=== PATIENT | female | born 2000 | race Caucasian/White ===

== ENCOUNTER 2022-10-22 16:03 | Emergency (ER) | payer BC, OTHER, SELFPAY ==
[2022-10-22 16:28] VITALS: BP 98/65; PULSE 68; RESP 20; TEMP 36.3; O2SAT 100; BMI 21.3
[2022-10-22 17:42] LABS: Bacteria Urine Few (2-10); Culture Indicated Urine Specimen Cultured; Mucus Urine 2+ (Negative); RBC Urine 0-1/HPF (0-5/HPF); Squamous Epithelial Cell Urine 1-5 /HPF (0-5/HPF); Transitional Epi Cells Urine 1-5/HPF (0-5/HPF); WBC Urine 5-10/HPF (0-5/HPF)
[2022-10-22 18:03] LABS: Other Crystals Urine 1+ Amorphous
--- NOTE | 2022-10-22 18:10 | DI.US.S_ITS ---
PROCEDURE: US OB <= 14 WEEKS FETUS INDICATIONS: unknown dates with vag bleeding TECHNIQUE: Real-time scanning was performed of the fetus and maternal pelvic organs, with image documentation. Endovaginal scanning was also performed to better visualize the fetus and maternal ovaries. COMPARISON: None. FINDINGS: No gestational sac is identified. IMPRESSION: No gestational sac is identified. If test is positive, cannot exclude ectopic . Dictated by: John Oliver M.D. on 10/22/2022 at 18:15 Approved by: John Oliver M.D. on 10/22/2022 at 18:16
[2022-10-22 18:48] LABS: Add Manual Diff / Slide Review NO; Basophils Absolute Auto 0 /uL (0-100); Basophils Percent Auto 0.5 % (0-2); Eosinophils Absolute Auto 0 /uL (0-450); Eosinophils Percent Auto 0.3 % (2-4); Hematocrit 42.1 % (36-46); Hemoglobin 14.5 g/dL (12.0-16.0); Lymphocytes Absolute Auto 1800 /uL (1100-4500); Lymphocytes Percent Auto 23.4 % (25-40); Mean Corpuscular HGB Conc 34.5 % (30-36); Mean Corpuscular Hemoglobin 30.2 PG (26-34); Mean Corpuscular Volume 87.5 fL (80-100); Monocytes Absolute Auto 400 /uL (0-900); Monocytes Percent Auto 4.8 % (3-14); Neutrophils Absolute Auto 5500 /uL (1500-7000); Platelet Count 304 X10^3/uL (150-400); Red Blood Cell Count 4.81 X10^6/uL (4.0-5.2); Red Cell Distribution Width 13.1 % (11.6-14.8); White Blood Cell Count 7.7 X10^3/uL (4.5-11.0)
[2022-10-22 19:03] LABS: BUN Creatinine Ratio 19.1 (6-22); Blood Urea Nitrogen 13 mg/dL (7-17); Calcium 9.2 mg/dL (8.4-10.2); Carbon Dioxide 28 mmol/L (22-32); Chloride 102 mmol/L (98-107); Estimated Glomerular Filt Rate > 60 mL/min (>60); Glucose 90 mg/dL (70-100); HEMOLYSIS 17 (0-50); Potassium 4.2 mmol/L (3.4-5.1); Sodium 137 mmol/L (137-145)
[2022-10-22 19:20] LABS: HCG Quantitative /Beta subunit 714 mIU/mL
--- NOTE | 2022-10-22 19:41 | ED.GENADULT ---
HPI - General Adult General Chief complaint: Vaginal Bleeding Stated complaint: preg and bleed, cramp, started on Fri Time Seen by Provider: 10/22/22 19:26 Source: patient Mode of arrival: Ambulatory Limitations: no limitations History of Present Illness HPI narrative: Patient is a 22-year-old female. here for evaluation of a positive home test and also bleeding and cramping. She does not have a primary doctor. Does not have a OB provider. This is her 1st . She is here because she started to have cramping and bleeding 2 days ago. She states that it is more than irregular menstrual cycle. She denies any fevers. No vomiting. No urinary symptoms. Related Data Allergies Allergy/AdvReac Type Severity Reaction Status Date / Time No Known Drug Allergies Allergy Verified 10/22/22 16:40 Review of Systems Constitutional Constitutional: Reports system reviewed and no additional complaints, except as documented Gastrointestinal Gastrointestinal: Reports system reviewed and no additional complaints, except as documented Genitourinary Genitourinary: Reports system reviewed and no additional complaints, except as documented Patient History tobacco type: vaping alcohol intake frequency: 0-2 drinks per day Substance Use Type: marijuana Exam Initial Vital Signs Initial Vital Signs: Vital Signs Temperature 97.4 F L 10/22/22 16:28 Pulse Rate 68 10/22/22 16:28 Respiratory Rate 20 10/22/22 16:28 Blood Pressure 98/65 10/22/22 16:28 Pulse Oximetry 100 10/22/22 16:28 Oxygen Delivery Method Room Air 10/22/22 16:28 HENMT Head: normal to inspection and normocephalic Resp Effort & Inspection: normal respiratory effort Cardio Rate: regular rate GI Inspection: normal to inspection Neuro General: patient alert, patient awake, patient oriented x3 and moves all extremities Extrem General: normal to inspection Course Orders Ordered: ED Orders 10/22/22 17:06 Urine Culture Stat Urine Microscopic Stat 10/22/22 18:10 US OB <= 14 weeks fetus Stat 10/22/22 18:38 ABO RH Type Stat Basic Metabolic Panel Stat Complete Blood Count AUTO DIFF Stat HCG Quantitative /Beta subunit Stat Vital Signs Vital signs: Vital Signs - 8 hr 10/22/22 19:46 Pulse Rate 67 Blood Pressure 104/60 Pulse Oximetry 99 Oxygen Delivery Method Room Air Medical Decision Making Lab Data Lab results reviewed: Yes I reviewed the patient's lab results. 10/22/22 18:38 10/22/22 18:38 Labs: Lab Results 10/22/22 10/22/22 10/22/22 Range/Units 17:06 18:38 18:38 WBC 7.7 (4.5-11.0) X10^3/uL RBC 4.81 (4.0-5.2) X10^6/uL Hgb 14.5 (12.0-16.0) g/dL Hct 42.1 (36-46) % MCV 87.5 (80-100) fL MCH 30.2 (26-34) PG MCHC 34.5 (30-36) % RDW 13.1 (11.6-14.8) % Plt Count 304 (150-400) X10^3/uL Neut % (Auto) 71.0 (50-75) % Lymph % (Auto) 23.4 L (25-40) % [place] % (Auto) 4.8 (3-14) % Eos % (Auto) 0.3 L (2-4) % Baso % (Auto) 0.5 (0-2) % Neut # (Auto) 5500 (6002-8390) /uL Lymph # (Auto) 1800 (1725-6982) /uL [place] # (Auto) 400 (0-900) /uL Eos # (Auto) 0 (0-450) /uL Baso # (Auto) 0 (0-100) /uL Sodium 137 (137-145) mmol/L Potassium 4.2 (3.4-5.1) mmol/L Chloride 102 (98-107) mmol/L Carbon Dioxide 28 (22-32) mmol/L BUN 13 (7-17) mg/dL Creatinine 0.68 (0.52-1.04) mg/dL Estimated GFR > 60 (>60) mL/min BUN/Creatinine Ratio 19.1 (6-22) Glucose 90 (70-100) mg/dL Calcium 9.2 (8.4-10.2) mg/dL HCG, Quant 714 mIU/mL Urine RBC 0-1/hpf (0-5/HPF) Urine WBC 5-10/hpf H (0-5/HPF) Ur Squamous Epith Cells 1-5 /hpf (0-5/HPF) Ur Transition Epith Cell 1-5/hpf (0-5/HPF) Other Crystals 1+ amorphous Urine Bacteria Few (2-10) H (None) Urine Mucus 2+ H (Negative) Ur Culture Indicated? Specimen cultured Blood Type 10/22/22 Range/Units 18:38 WBC (4.5-11.0) X10^3/uL RBC (4.0-5.2) X10^6/uL Hgb (12.0-16.0) g/dL Hct (36-46) % MCV (80-100) fL MCH (26-34) PG MCHC (30-36) % RDW (11.6-14.8) % Plt Count (150-400) X10^3/uL Neut % (Auto) (50-75) % Lymph % (Auto) (25-40) % [place] % (Auto) (3-14) % Eos % (Auto) (2-4) % Baso % (Auto) (0-2) % Neut # (Auto) (9239-7358) /uL Lymph # (Auto) (6459-4282) /uL [place] # (Auto) (0-900) /uL Eos # (Auto) (0-450) /uL Baso # (Auto) (0-100) /uL Sodium (137-145) mmol/L Potassium (3.4-5.1) mmol/L Chloride (98-107) mmol/L Carbon Dioxide (22-32) mmol/L BUN (7-17) mg/dL Creatinine (0.52-1.04) mg/dL Estimated GFR (>60) mL/min BUN/Creatinine Ratio (6-22) Glucose (70-100) mg/dL Calcium (8.4-10.2) mg/dL HCG, Quant mIU/mL Urine RBC (0-5/HPF) Urine WBC (0-5/HPF) Ur Squamous Epith Cells (0-5/HPF) Ur Transition Epith Cell (0-5/HPF) Other Crystals Urine Bacteria (None) Urine Mucus (Negative) Ur Culture Indicated? Blood Type A Positive Point of Care Testing Test Results Positive Urine Dip Bedside Urine Glucose Negative Bedside Urine Bilirubin - Negative Bedside Urine Ketone - Negative Urine Specific [place] 1.020 Bedside Urine Occult Blood +++ Bedside Urine pH 6.5 Bedside Urine Protein - Negative Bedside Urine Urobilinogen +/- 1mg Bedside Urine Nitrite - Negative Bedside Urine Leukocytes - Negative Esterase Point of care testing: Point of Care Testing Test Results Positive Urine Dip Bedside Urine Glucose Negative Bedside Urine Bilirubin - Negative Bedside Urine Ketone - Negative Urine Specific [place] 1.020 Bedside Urine Occult Blood +++ Bedside Urine pH 6.5 Bedside Urine Protein - Negative Bedside Urine Urobilinogen +/- 1mg Bedside Urine Nitrite - Negative Bedside Urine Leukocytes - Negative Esterase Imaging Data US - OB: Radiologist's Impression: PROCEDURE:? US OB <= 14 WEEKS FETUS ? INDICATIONS:? unknown dates with vag bleeding ? TECHNIQUE:? Real-time scanning was performed of the fetus and maternal pelvic organs, with image documentation.? Endovaginal scanning was also performed to better visualize the fetus and maternal ovaries.? ? COMPARISON:? None. ? FINDINGS:? No gestational sac is identified. ? IMPRESSION:? No gestational sac is identified.? If test is positive, cannot exclude ectopic . MDM Narrative Medical decision making narrative: Patient is Rh positive. Does have a positive urine test however quantitative is well below the level where we would expect to see an IUP. The ultrasound shows no signs of ectopic but also does not show any IUP. Had a long discussion with the patient regarding this. We discussed that potentially this is a miscarriage and her quantitative level could be going down or potentially she is so early on in the that her quantitative level could be increasing and we just do not see anything on the ultrasound because of its current level. We discussed the importance of a repeat lab draw in 48 hours. She does not have a primary doctor nor in primary OB doctor for this. Informed her that she could either go to the walk-in clinic to have this drawn that she most likely will not need a repeat ultrasound or she could come back to the emergency department. She was given strict return precautions. We did discuss that I could not completely rule out that this was an ectopic given her hormone level today. She expressed understanding of this. She expressed understanding of the return precautions. Discharge Plan Departure Patient Disposition: Home Clinical Impression: Threatened Instructions: DI for Vaginal Bleeding During Activity Restrictions/Additional Instructions: It is important that you have a follow-up on Sunday to have a repeat hCG quantitative level drawn. You can try the walk-in clinic for this or you can return to the emergency department. Until then I would not be surprised if you continue to have some continued bleeding however if you start to have fevers, worsening pain or bleeding more than multiple pads an hour for multiple hours in a row you need to return to the emergency department. Stand Alone Forms: Patient Portal/API
[2022-10-22 19:46] VITALS: BP 104/60; PULSE 67; O2SAT 99
== END 2022-10-22 19:54 | disposition home or self-care (01) ==
PROVIDERS: Emergency Medicine; Emergency Provider Emergency Medicine
DX: O20.0 Threatened abortion (principal)
CPT/HCPCS: 36415; 76801; 76830; 80048; 81003; 81015; 81025; 84702; 85025; 86900; 86901; 87086; 99282; 99284

== ENCOUNTER 2023-02-21 17:08 | Emergency (ER) | payer BC, OTHER, SELFPAY ==
[2023-02-21 17:23] VITALS: BP 120/62; PULSE 83; RESP 16; TEMP 36.8; O2SAT 100; BMI 18.1
--- NOTE | 2023-02-21 18:05 | DI.CT.S_ITS ---
PROCEDURE: CT ABDOMEN PELVIS W CON INDICATIONS: ab pain TECHNIQUE: After the administration of intravenous contrast, axial sections acquired from the lung bases to the pubic symphysis. Coronal and sagittal reformats were performed. For radiation dose reduction, the following was used: automated exposure control, adjustment of mA and/or kV according to patient size. COMPARISON: None. FINDINGS: Image quality: Good Lower chest: Unremarkable Solid organs: The the liver appears unremarkable. Gallbladder is unremarkable. There may be some sludge. No pathologic dilation of the biliary tree or pancreatic duct. No splenomegaly. No adrenal nodules. No hydronephrosis. Vessels and lymph nodes: Main portal vein appears patent. No abdominal aortic aneurysm. No pathologic lymph nodes by size criteria. Bowel and peritoneum: No evidence of small bowel obstruction. No abscess or pathologic ascites. Appendix is normal. Body wall: Unremarkable Pelvis: Reproductive organs are not well evaluated on CT. Suspected left ovarian dominant follicle. Overall appearance is physiologic for age. Bladder is under distended. Small amount of pelvic free fluid may be physiologic. Bones: No acute or suspicious osseous finding. High IMPRESSION: No acute abdominal pelvic pathology. Clinical followup is recommended. If there is new or worsening clinical concern, reimaging could be obtained. Consider ultrasound to further evaluate the reproductive organs if necessary. Dictated by: Cruz Marin M.D. on 02/21/2023 at 19:09 Approved by: Cruz Marin M.D. on 02/21/2023 at 19:15
[2023-02-21] MEDS: ONDANSETRON 4 MG/2 ML INJ IV (18:48)
--- NOTE | 2023-02-21 18:53 | ED.ABDPAIN ---
HPI - Abdominal Pain General Chief Complaint: Abdominal Pain Stated Complaint: Abd pain, back pain, d/n, losing weight Time Seen by Provider: 02/21/23 18:05 Source: patient Mode of arrival: Ambulatory History of Present Illness HPI narrative: Patient is a 22-year-old female who presents today with ongoing chronic abdominal pain. She reports weight loss of lb over the last few months and 100 lb over last 2 years. She has some night sweats sometimes. She has increasing abdominal pain and back pain radiating up into her head. She says that today the pain got to be so bad it was unbearable. She occasionally takes ibuprofen it does not really help. She reports early satiety. No nausea or vomiting. Her bowel movements have been quite loose and liquidy. Not really formed stools. He is never really been seen or evaluated for this. Related Data Previous Rx's Medication Instructions Recorded omeprazole 20 mg capsule,delayed 20 mg PO DAILY #30 caps 02/21/23 release Allergies Allergy/AdvReac Type Severity Reaction Status Date / Time No Known Drug Allergies Allergy Verified 10/22/22 16:40 Review of Systems Review of Systems ROS Unobtainable: All systems reviewed & are unremarkable except as noted in HPI and below Patient History Social History Smoking Status: Current every day smoker Smoking Status: Current every day smoker tobacco type: vaping alcohol intake frequency: 0-2 drinks per day Substance Use Type: does not use Exam Initial Vital Signs Initial Vital Signs: Vital Signs Temperature 98.2 F 02/21/23 17:23 Pulse Rate 83 02/21/23 17:23 Respiratory Rate 16 02/21/23 17:23 Blood Pressure 120/62 02/21/23 17:23 Pulse Oximetry 100 02/21/23 17:23 Oxygen Delivery Method Room Air 02/21/23 17:23 GENERAL: Thin tearful 22-year-old female HEENT: Head atraumatic,EOMI, pupils reactive, face symmetric, moist mucous membranes CARDIOVASCULAR: Regular rate and rhythm without murmurs, rubs or gallops. RESPIRATORY: Breath sounds equal bilaterally, no wheezes rales or rhonchi. ABDOMEN: Soft, mild diffuse tenderness no distention. Normoactive bowel sounds all 4 quadrants. No guarding or rebound. EXTREMITIES: Normal range of motion, no clubbing or edema. Neurovascularly intact NEUROLOGICAL: Alert and oriented x4. SKIN: Warm, dry, no laceration, no petechiae, no rashes or lesions. Course Orders Ordered: Discontinued Medications Sodium Chloride (Normal Saline 0.9%) 1,000 mls @ 1,000 mls/hr IV BOLUS ONE Stop: 02/21/23 20:43 Last Infusion: 02/21/23 20:49 Dose: 0 mls/hr Documented By: Admin: 02/21/23 19:45 Dose: 1,000 mls/hr Documented By: SPF Ketorolac Tromethamine (Ketorolac 30 Mg/Ml Vial) 15 mg IV NOW ONE Stop: 02/21/23 19:25 Last Admin: 02/21/23 19:36 Dose: 15 mg Documented By: SPF Ondansetron HCl (Ondansetron 4 Mg/2 Ml Inj) 4 mg IV NOW PRN PRN Reason: Nausea And Vomiting Last Admin: 02/21/23 18:48 Dose: 4 mg Documented By: ROBERT Pantoprazole Sodium (Pantoprazole 40 Mg Vial) 40 mg IV NOW ONE Stop: 02/21/23 19:25 Last Admin: 02/21/23 19:31 Dose: 40 mg Documented By: ROBERT Vital Signs Vital signs: Vital Signs - 8 hr 02/21/23 20:48 02/21/23 20:48 Pulse Rate 68 Blood Pressure 115/75 Pulse Oximetry 99 Oxygen Delivery Method Room Air MDM - Abdominal Pain Lab Data 02/21/23 18:25 02/21/23 18:25 Labs: Lab Results 02/21/23 02/21/23 02/21/23 Range/Units 17:51 18:25 18:25 WBC 9.5 (4.5-11.0) X10^3/uL RBC 4.70 (4.0-5.2) X10^6/uL Hgb 14.0 (12.0-16.0) g/dL Hct 40.5 (36-46) % MCV 86.2 (80-100) fL MCH 29.7 (26-34) PG MCHC 34.5 (30-36) % RDW 13.5 (11.6-14.8) % Plt Count 237 (150-400) X10^3/uL Neut % (Auto) 75.8 H (50-75) % Lymph % (Auto) 18.6 L (25-40) % [place] % (Auto) 5.1 (3-14) % Eos % (Auto) 0.1 L (2-4) % Baso % (Auto) 0.4 (0-2) % Neut # (Auto) 7200 H (4030-6662) /uL Lymph # (Auto) 1800 (3242-3800) /uL [place] # (Auto) 500 (0-900) /uL Eos # (Auto) 0 (0-450) /uL Baso # (Auto) 0 (0-100) /uL Sodium 137 (137-145) mmol/L Potassium 3.8 (3.4-5.1) mmol/L Chloride 103 (98-107) mmol/L Carbon Dioxide 24 (22-32) mmol/L BUN 15 (7-17) mg/dL Creatinine 0.71 (0.52-1.04) mg/dL Estimated GFR > 60 (>60) mL/min BUN/Creatinine Ratio 21.1 (6-22) Glucose 79 (70-100) mg/dL Calcium 9.8 (8.4-10.2) mg/dL Total Bilirubin 1.0 (0.2-1.3) mg/dL AST 33 (14-36) IU/L ALT 30 (<35) IU/L Alkaline Phosphatase 56 (38-126) U/L Total Protein 8.8 H (6.3-8.2) g/dL Albumin 5.1 H (3.5-5.0) g/dL Globulin 3.7 (1.7-4.1) g/dL Albumin/Globulin Ratio 1.4 (1.0-2.8) Lipase 39 (23-300) U/L TSH (0.47-4.68) uIU/mL Urine RBC None seen (0-5/HPF) Urine WBC 0-1/hpf (0-5/HPF) Ur Squamous Epith Cells None seen (0-5/HPF) Urine Bacteria None seen (None) Urine Mucus 1+ H (Negative) Ur Culture Indicated? Cult not indicated Ketones 0.75 H (<0.27) mmol/L 02/21/23 Range/Units 18:25 WBC (4.5-11.0) X10^3/uL RBC (4.0-5.2) X10^6/uL Hgb (12.0-16.0) g/dL Hct (36-46) % MCV (80-100) fL MCH (26-34) PG MCHC (30-36) % RDW (11.6-14.8) % Plt Count (150-400) X10^3/uL Neut % (Auto) (50-75) % Lymph % (Auto) (25-40) % [place] % (Auto) (3-14) % Eos % (Auto) (2-4) % Baso % (Auto) (0-2) % Neut # (Auto) (3220-8293) /uL Lymph # (Auto) (3319-8051) /uL [place] # (Auto) (0-900) /uL Eos # (Auto) (0-450) /uL Baso # (Auto) (0-100) /uL Sodium (137-145) mmol/L Potassium (3.4-5.1) mmol/L Chloride (98-107) mmol/L Carbon Dioxide (22-32) mmol/L BUN (7-17) mg/dL Creatinine (0.52-1.04) mg/dL Estimated GFR (>60) mL/min BUN/Creatinine Ratio (6-22) Glucose (70-100) mg/dL Calcium (8.4-10.2) mg/dL Total Bilirubin (0.2-1.3) mg/dL AST (14-36) IU/L ALT (<35) IU/L Alkaline Phosphatase (38-126) U/L Total Protein (6.3-8.2) g/dL Albumin (3.5-5.0) g/dL Globulin (1.7-4.1) g/dL Albumin/Globulin Ratio (1.0-2.8) Lipase (23-300) U/L TSH 1.21 (0.47-4.68) uIU/mL Urine RBC (0-5/HPF) Urine WBC (0-5/HPF) Ur Squamous Epith Cells (0-5/HPF) Urine Bacteria (None) Urine Mucus (Negative) Ur Culture Indicated? Ketones (<0.27) mmol/L Point of care testing: Point of Care Testing Test Results Negative Urine Dip Bedside Urine Glucose Negative Bedside Urine Bilirubin - Negative Bedside Urine Ketone ++ 40 Urine Specific [place] 1.030 Bedside Urine Occult Blood +/- Bedside Urine pH 6.0 Bedside Urine Protein + 30 Bedside Urine Urobilinogen - Negative Bedside Urine Nitrite - Negative Bedside Urine Leukocytes - Negative Esterase Imaging Data CT scan - abdomen/pelvis: Radiologist's Impression: PROCEDURE:? CT ABDOMEN PELVIS W CON ? INDICATIONS:? ab pain ? TECHNIQUE:? After the administration of intravenous contrast, axial sections acquired from the lung bases to the pubic symphysis.? Coronal and sagittal reformats were performed.? For radiation dose reduction, the following was used:? automated exposure control, adjustment of mA and/or kV according to patient size.? ? COMPARISON:? None. ? FINDINGS:? Image quality:? Good ? Lower chest:? Unremarkable ? Solid organs:? The the liver appears unremarkable.? Gallbladder is unremarkable.? There may be some sludge.? No pathologic dilation of the biliary tree or pancreatic duct.? No splenomegaly.? No adrenal nodules.? No hydronephrosis. ? Vessels and lymph nodes:? Main portal vein appears patent.? No abdominal aortic aneurysm. ?No pathologic lymph nodes by size criteria. ? Bowel and peritoneum:? No evidence of small bowel obstruction.? No abscess or pathologic ascites.? Appendix is normal. ? Body wall:? Unremarkable ? Pelvis:? Reproductive organs are not well evaluated on CT.? Suspected left ovarian dominant follicle.? Overall appearance is physiologic for age.? Bladder is under distended.? Small amount of pelvic free fluid may be physiologic. ? Bones:? No acute or suspicious osseous finding.? High ? ? IMPRESSION:? No acute abdominal pelvic pathology.? Clinical followup is recommended. If there is new or worsening clinical concern, reimaging could be obtained. Consider ultrasound to further evaluate the reproductive organs if necessary.? ? ? Dictated by: Cruz Marin M.D. on 02/21/2023 at 19:09 ? ? MDM Narrative Medical decision making narrative: Patient healthy 22-year-old female who has had ongoing abdominal pain and discomfort. She is had significant weight loss with early safety. Abdominal CT does not show any mass. Blood work is overall reassuring her thyroid is within normal limits. At this time no need for admission. Over do strongly encourage and recommend outpatient follow-up and further evaluation with GI. For now will start on omeprazole. Labs: No leukocytosis or anemia, no electrolyte abnormality no JEANMARIE, albumin 5.1 TSH 1.21 Discharge Plan Departure Patient Disposition: Home Clinical Impression: Chronic abdominal pain, Abnormal weight loss Instructions: DI for Abdominal Pain-Adult Activity Restrictions/Additional Instructions: *You have been diagnosed with abdominal pain *What to do: At this time recommend taking ulcer medication to see if it helps with your pain. I also recommend GI evaluation. CT scan blood work are reassuring no evidence of thyroid problems. *Continue to take medications as directed Omeprazole 20 mg twice a day for at least 14 days *Follow up with your primary care provider in 2-3 days or call [phone] *Return to ER if you should have increasing abdominal pain passing out or any new, worsening or concerning symptoms Prescriptions: New omeprazole 20 mg capsule,delayed release(DR/EC) 20 mg PO DAILY Qty: 30 0RF Stand Alone Forms: Patient Portal/API
[2023-02-21 18:55] LABS: HEMOLYSIS < 15 (0-50); Sodium 137 mmol/L (137-145)
[2023-02-21 18:56] LABS: Alanine Aminotransferase 30 IU/L (<35); Albumin 5.1 g/dL (3.5-5.0); Albumin Globulin Ratio 1.4 (1.0-2.8); Alkaline Phosphatase 56 U/L (38-126); Aspartate Aminotransferase 33 IU/L (14-36); BUN Creatinine Ratio 21.1 (6-22); Blood Urea Nitrogen 15 mg/dL (7-17); Calcium 9.8 mg/dL (8.4-10.2); Carbon Dioxide 24 mmol/L (22-32); Chloride 103 mmol/L (98-107); Estimated Glomerular Filt Rate > 60 mL/min (>60); Globulin 3.7 g/dL (1.7-4.1); Glucose 79 mg/dL (70-100); Lipase 39 U/L (23-300); Potassium 3.8 mmol/L (3.4-5.1); Total Protein 8.8 g/dL (6.3-8.2)
[2023-02-21 18:58] LABS: Ketones (Beta-Hydroxybutyrate) 0.75 mmol/L (<0.27)
[2023-02-21 19:03] LABS: Bacteria Urine None Seen; Culture Indicated Urine Cult Not Indicated; Mucus Urine 1+ (Negative); RBC Urine None Seen (0-5/HPF); Squamous Epithelial Cell Urine None Seen (0-5/HPF); WBC Urine 0-1/HPF (0-5/HPF)
[2023-02-21 19:09] LABS: Add Manual Diff / Slide Review NO; Basophils Absolute Auto 0 /uL (0-100); Basophils Percent Auto 0.4 % (0-2); Eosinophils Absolute Auto 0 /uL (0-450); Eosinophils Percent Auto 0.1 % (2-4); Hematocrit 40.5 % (36-46); Lymphocytes Absolute Auto 1800 /uL (1100-4500); Lymphocytes Percent Auto 18.6 % (25-40); Mean Corpuscular HGB Conc 34.5 % (30-36); Mean Corpuscular Hemoglobin 29.7 PG (26-34); Mean Corpuscular Volume 86.2 fL (80-100); Monocytes Absolute Auto 500 /uL (0-900); Monocytes Percent Auto 5.1 % (3-14); Neutrophils Absolute Auto 7200 /uL (1500-7000); Neutrophils Percent Auto 75.8 % (50-75); Platelet Count 237 X10^3/uL (150-400); Red Cell Distribution Width 13.5 % (11.6-14.8); White Blood Cell Count 9.5 X10^3/uL (4.5-11.0)
[2023-02-21] MEDS: PANTOPRAZOLE 40 MG VIAL IV (19:31)
[2023-02-21] MEDS: KETOROLAC 30 MG/ML VIAL 15 MG IV (19:36)
[2023-02-21] MEDS: SODIUM CHLORIDE 0.9% 1,000 ML 1000 ML IV (19:45)
[2023-02-21 20:08] LABS: Thyroid Stimulating Hormone 1.21 uIU/mL (0.47-4.68)
[2023-02-21 20:48] VITALS: BP 115/75; PULSE 68; O2SAT 99
== END 2023-02-21 20:54 | disposition home or self-care (01) ==
PROVIDERS: Emergency Medicine; Emergency Provider Emergency Medicine
DX: R10.9 Unspecified abdominal pain (principal); R63.4 Abnormal weight loss
CPT/HCPCS: 36415; 74177; 80053; 81003; 81015; 81025; 82009; 83690; 84443; 85025; 96361; 96374; 96375; 99284; C9113; J1885; J2405

== ENCOUNTER → 2023-05-25 12:54 | Outpatient (CLI) | payer OTHER, SELFPAY ==
[2023-05-25 13:50] LABS: Appearance Urine UA CLEAR; Bilirubin Urine UA NEGATIVE (NEGATIVE); Color Urine UA YELLOW; Glucose Urine UA NEGATIVE (Negative); Ketones Urine UA NEGATIVE (NEGATIVE); Leukocyte Esterase Urine UA NEGATIVE (NEGATIVE); Nitrite Urine UA NEGATIVE (Negative); Occult Blood Urine UA NEGATIVE (Negative); Protein Urine UA NEGATIVE (Negative); Specific Gravity Urine UA 1.025 (1.000-1.035); Urobilinogen Urine UA 0.2 E.U./dL (0.2)
[2023-05-25 13:54] LABS: pH Urine UA 5.5 (4.5-8.0)
[2023-05-25 14:03] LABS: Add Manual Diff / Slide Review NO; Basophils Absolute Auto 0 /uL (0-100); Basophils Percent Auto 0.3 % (0-2); Eosinophils Absolute Auto 0 /uL (0-450); Eosinophils Percent Auto 0.2 % (2-4); Hematocrit 39.6 % (36-46); Hemoglobin 13.8 g/dL (12.0-16.0); Lymphocytes Absolute Auto 1700 /uL (1100-4500); Lymphocytes Percent Auto 15.9 % (25-40); Mean Corpuscular HGB Conc 34.9 % (30-36); Mean Corpuscular Hemoglobin 30.5 PG (26-34); Mean Corpuscular Volume 87.5 fL (80-100); Monocytes Absolute Auto 600 /uL (0-900); Monocytes Percent Auto 5.3 % (3-14); Neutrophils Absolute Auto 8500 /uL (1500-7000); Neutrophils Percent Auto 78.3 % (50-75); Platelet Count 311 X10^3/uL (150-400); Red Blood Cell Count 4.52 X10^6/uL (4.0-5.2); Red Cell Distribution Width 12.8 % (11.6-14.8); White Blood Cell Count 10.9 X10^3/uL (4.5-11.0)
[2023-05-26 07:21] LABS: RPR Screen Non Reactive (Non Reactive)
[2023-05-26 08:37] LABS: Varicella IgG Antibody 251 index (Immune >165)
[2023-05-28 16:40] LABS: Hepatitis B Surface Antigen NEGATIVE s/c (NEGATIVE); Rubella Antibody IgG 8.8 IU/mL (>15)
[2023-05-28 16:59] LABS: HIV 1 & 2 Ab/Ag 4th Gen Combo NEGATIVE (NEGATIVE); Hep C Virus Ab w/Reflex Quant NEGATIVE s/c (NEGATIVE)
== END ==
PROVIDERS: Referring Provider Family Medicine; Visit Provider Family Medicine
DX: Z34.80 Encounter for supervision of other normal pregnancy, unspecified trimester (principal)
CPT/HCPCS: 36415; 80055; 81003; 86787; 86803; 86850; 86900; 86901; 87086; 87389

== ENCOUNTER → 2023-07-27 10:50 | Outpatient (CLI) | payer OTHER, SELFPAY ==
[2023-07-31 21:07] LABS: AFP, Serum 24.8 ng/mL (.); Calc Gestational Age EDD (.); Inhibin A, Dimeric 108.23 pg/mL (.); Inhibin A, MoM 0.78 (.); Maternal Ethnicity Caucasian (.); Maternal Weight 173 lbs (.); Number of Fetuses No (.); OSBR Risk 1 IN 10000 (.); Results Report (.); Test Results *Screen Negative* (.); hCG, MoM 0.49 (.); hCG, Serum 14591 mIU/mL (.)
== END ==
PROVIDERS: PCP Family Medicine; Referring Provider Family Medicine; Visit Provider Family Medicine
DX: Z34.80 Encounter for supervision of other normal pregnancy, unspecified trimester (principal)
CPT/HCPCS: 36415; 82105; 82677; 84702; 86336

== ENCOUNTER → 2023-08-17 14:02 | Outpatient (CLI) | payer OTHER, SELFPAY ==
--- NOTE | 2023-08-17 14:03 | DI.US.S_ITS ---
PROCEDURE: US OB <= 14 WEEKS FETUS INDICATIONS: ANATOMY OUTSIDE/PRIOR DATING DATA: Last menstrual period (LMP): 03/22/2023. LMP-based estimated date of delivery (MISTY): 12/28/2023. First dating scan (date and location): 05/25/2023 Estimated date of delivery (MISTY) from first dating scan: 01/02/2024. The calculations are made using the ultrasound MISTY of 01/02/2024. TECHNIQUE: Real-time scanning was performed of the fetus, with image documentation and biometric measurements. Endovaginal scanning: Performed COMPARISON: [facility], OB <= 14 WEEKS FETUS, 10/22/2022, 18:47. FINDINGS: General: A single living intrauterine gestation is present. Presentation: Breech. Placenta: Placental position is fundal , without previa. Amniotic fluid index: 12.0 cm, normal range is 5-24 cm. Single deepest pocket: 3.7 cm. heart rate: 149 beats per minute. Maternal cervical canal: 4.6 cm long. Normal lower limit is 2.5 cm. There is fluid in the endocervical canal, but no funneling. biometrics: Biparietal diameter: 4.8 cm, 20 weeks 3 days Head circumference: 18.2 cm, 20 weeks 3 days Abdominal circumference: 15.7 cm, 20 weeks 3 days Femur length: 3.4 cm, 20 weeks 4 days Clinically estimated gestational age: 20 weeks 2 days Composite gestational age from present scan: 20 weeks 4 days Estimated weight and percentile: 371 g, 69th percentile Anatomic survey: Neuro: Ventricles are non-dilated at less than 10 mm. Cisterna magna is normal at 3-11 mm. Cerebellum is normal in size and morphology. Nuchal skin fold: Normal at less than 6 mm between 14-21 weeks gestational age. Face: Nose and lips, facial profile are normal. Spine: No evidence for spina bifida. Heart: 4-chambered heart is present, with normal ventricular outflow tracts. Diaphragm: Diaphragm is intact. Stomach: Left-sided stomach is present. Kidneys: No hydronephrosis. Normal is less than 5 mm in 2nd trimester, less than 7 mm in 3rd trimester. Cord: 3-vessel cord has orthotopic insertion. Bladder: Normal in size. Extremities: All 4 extremities identified. IMPRESSION: 1. Living 2nd trimester intrauterine with no sonographic evidence of complications. Current ultrasound age corresponds to clinical age. 2. Normal 2nd trimester anatomy study. We strive to produce accurate, complete, and clear reports of imaging services. To assist us in improving patient care, this report was composed using standard report templates and voice recognition software. Therefore, it may contain abnormal punctuation, insertions and/or omissions. Occasional wrong-word or sound-alike substitutions may occur. Though we review the report and make efforts to correct it, we do recommend that the report be read carefully in proper context to recognize any text inaccuracies. Measurement variability for biometric dating: +/- 7 days from 14 weeks to 15 weeks 6 days gestation, +/- 10 days from 16 weeks to 21 weeks 6 days gestation, +/- 2 weeks from 22 weeks to 27 weeks 6 days gestation, +/- 3 weeks for 28 weeks gestation or later. weight reference: 4500 g or EFW >90/95% is considered macrosomia or large for gestational age. EFW <10% is small for gestational age. EFW 5% or less is considered intra-uterine growth restriction. Dictated by: Ra Person M.D. on 08/17/2023 at 18:49 Approved by: Ra Person M.D. on 08/17/2023 at 18:59
== END ==
LOC: US 14:02
PROVIDERS: PCP Family Medicine; Referring Provider Family Medicine; Visit Provider Family Medicine
DX: Z34.82 Encounter for supervision of other normal pregnancy, second trimester (principal); Z3A.20 20 weeks gestation of pregnancy
CPT/HCPCS: 76801

== ENCOUNTER → 2023-10-06 09:00 | Outpatient (CLI) | payer OTHER, SELFPAY ==
[2023-10-06 10:59] LABS: Add Manual Diff / Slide Review NO; Basophils Absolute Auto 0 /uL (0-100); Basophils Percent Auto 0.2 % (0-2); Eosinophils Absolute Auto 0 /uL (0-450); Eosinophils Percent Auto 0.4 % (2-4); Hematocrit 30.2 % (36-46); Hemoglobin 10.6 g/dL (12.0-16.0); Lymphocytes Absolute Auto 1100 /uL (1100-4500); Lymphocytes Percent Auto 15.8 % (25-40); Mean Corpuscular HGB Conc 35.1 % (30-36); Mean Corpuscular Hemoglobin 29.5 PG (26-34); Mean Corpuscular Volume 84.2 fL (80-100); Monocytes Absolute Auto 400 /uL (0-900); Monocytes Percent Auto 5.8 % (3-14); Neutrophils Absolute Auto 5600 /uL (1500-7000); Neutrophils Percent Auto 77.8 % (50-75); Platelet Count 245 X10^3/uL (150-400); Red Blood Cell Count 3.58 X10^6/uL (4.0-5.2); Red Cell Distribution Width 12.7 % (11.6-14.8); White Blood Cell Count 7.2 X10^3/uL (4.5-11.0)
[2023-10-06 11:40] LABS: GTT (PREG) 1 Hour PP 50gm Dose 106 mg/dL (76-139)
== END ==
LOC: LAB 09:01
PROVIDERS: PCP Family Medicine; Referring Provider Family Medicine; Visit Provider Family Medicine
DX: Z34.80 Encounter for supervision of other normal pregnancy, unspecified trimester (principal)
CPT/HCPCS: 36415; 82950; 85025; 86850

== ENCOUNTER → 2023-12-07 13:38 | Outpatient (CLI) | payer OTHER, SELFPAY ==
[2023-12-08 13:29] LABS: Strep Grp B PCR NEG for Grp B Strep
== END ==
PROVIDERS: PCP Family Medicine; Visit Provider Family Medicine
DX: Z34.80 Encounter for supervision of other normal pregnancy, unspecified trimester (principal)
CPT/HCPCS: 87653

== ENCOUNTER 2024-01-08 19:23 | Inpatient (IN) | payer OTHER, SELFPAY ==
[2024-01-08 20:41] VITALS: BP 123/80
[2024-01-08 20:51] LABS: Add Manual Diff / Slide Review NO; Basophils Absolute Auto 0 /uL (0-100); Basophils Percent Auto 0.2 % (0-2); Eosinophils Absolute Auto 0 /uL (0-450); Eosinophils Percent Auto 0.2 % (2-4); Hematocrit 37.1 % (36-46); Hemoglobin 12.6 g/dL (12.0-16.0); Lymphocytes Absolute Auto 1300 /uL (1100-4500); Lymphocytes Percent Auto 12.9 % (25-40); Mean Corpuscular HGB Conc 33.8 % (30-36); Mean Corpuscular Hemoglobin 28.3 PG (26-34); Mean Corpuscular Volume 83.7 fL (80-100); Monocytes Absolute Auto 500 /uL (0-900); Monocytes Percent Auto 4.9 % (3-14); Neutrophils Absolute Auto 8400 /uL (1500-7000); Neutrophils Percent Auto 81.8 % (50-75); Platelet Count 240 X10^3/uL (150-400); Red Blood Cell Count 4.44 X10^6/uL (4.0-5.2); White Blood Cell Count 10.3 X10^3/uL (4.5-11.0)
[2024-01-08] MEDS: miSOPROStoL 25 MCG TABLET PO (21:16)
[2024-01-08] MEDS: LACTATED RINGERS 1,000 ML 100 ML IV (21:17)
--- NOTE | 2024-01-09 10:13 | P.HPOB_ITS ---
OB HPI Date/Time Date of admission: 01/09/24 History of Present Condition Chief complaint: INDUCTION MISTY Calculator 2 Estimated Delivery Date Method Current WG Current Estimate 01/02/24 Ultrasound #1 41w 0d Other Estimates 12/28/23 LMP (Certain) 41w 5d Estimated Gestational Age (weeks): 41w0d : 2 Para: 0 Narrative: 23yo at 41w0d here for post-dates IOL. She denies any vaginal bleeding, contractions, or LOF prior to presentation. She is feeling her baby move regularly. Her has been uncomplicated. care: good care, initiated at week # (8) and pounds weight gain (91) Dating criteria OB: based on 1st trimester US only Ultrasounds: normal 1st trimester US and normal mid trimester US Obstetrical complications: none Medical complications OB: none Indications Indication for induction OB: post dates Preadmission Labs Last OB Lab Results: 2 Blood Type A Positive 01/08/24 20:15 Antibody Screen Negative 01/08/24 20:15 Hematocrit 37.1 % (36-46) 01/08/24 20:15 Hemoglobin 12.6 g/dL (12.0-16.0) 01/08/24 20:15 Hepatitis B Surface Antigen Negative s/c (NEGATIVE) 05/25/23 13 :02 Hepatitis C Antibody Negative s/c (NEGATIVE) 05/25/23 13:02 Rubella Antibody 8.8 IU/mL (>15) L 05/25/23 13:02 Varicella-Zoster IgG Antibody 251 index (Immune >165) 05/25/23 13:02 Glucose 1 Hour 106 mg/dL (76-139) 10/06/23 10:29 Group B Streptococcus (PCR) Neg for grp b strep 12/07/23 13:38 -: Urine: negative Genetic Screens: Quad screen: Normal External Labs -: Urine: negative Prior (ies) Past Pregnancies Del. Date GA/Weeks Labor Lgth Wt Sex Route Outcome Anesthesia Place Delv Breastfeed Preg Comp Name 11/18/22 7 spontaneous Delivery Date: 11/18/22 Last Updated by: Mimi Holder RN passed spontaneously, no complications Evaluation Evaluation Baseline heart rate: 130 Variability: Moderate (11-25) monitor accelerations: Present Monitor Decelerations: Absent Contraction Frequency (minutes): 3 Uterine Contraction Intensity: Moderate Status: Category l Dilation (cm): 2 Effacement (%): 70 Dilation: 1-2 cm Effacement: 60-70% station: -2 Position of cervix: mid Consistency: soft Evans score: 7 PFSH Medical History (Updated 05/11/23 @ 14:43 by Mimi Holder RN) Adopted Depression Anxiety Surgical History (Updated 05/11/23 @ 14:41 by Mimi Holder RN) H/O tooth extraction [place] teeth extracted Family History (Updated 05/11/23 @ 14:42 by Mimi Holder RN) Mother Substance abuse Social History marital status: number of children: 0 household members: spouse lives independently: Yes caregiver/support person: No housing: condominium pets and animals: Yes (2 cats, 1 dog) education level: vocational occupational status: employed current occupational exposures/hazards: No special shaun needs: No travel history: over 6 months ago seatbelt use: always helmet use: Yes water heater temp set < 120 deg: Yes working smoke detector in home: Yes fire extinguisher in home: Yes carbon monox detector in home: Yes firearms in home: No do you feel safe at home: Yes Smoking Status: Never smoker second hand exposure: Yes ( is trying to quit vaping) alcohol intake: former substance use type: does not use during the past year weight has: decreased > 10 lbs well-balanced diet: about half the time daily servings fruits/ve-4 caffeine: No Type(s) of exercise: walking, aerobic and weight lifting frequency: 3-4 times per week Meds Home Medications and Allergies Home Medications Medication Instructions Recorded Confirmed Type omeprazole 20 mg capsule,delayed 20 mg PO DAILY #30 caps 02/21/23 01/04/24 Rx release amoxicillin 250 mg capsule 250 mg PO TID 05/11/23 01/04/24 History vitamin-ferrous sulfate tab PO 05/11/23 01/04/24 History 27 mg iron-folic acid 0.8 mg tablet Allergies Allergy/AdvReac Type Severity Reaction Status Date / Time No Known Drug Allergies Allergy Verified 01/04/24 10:13 OB Exam Resp Effort & Inspection: normal respiratory effort Auscultation: clear to auscultation bilaterally Cardio Rate: regular rate Rhythm: regular rhythm Heart Sounds: S1 normal, S2 normal and no murmurs GI Inspection: non-distended Palpation: Yes soft and No tender Presentation: vertex Objective Labs 01/08/24 20:15 Labs: Laboratory Results - last 24 hr 01/08/24 20:15 WBC 10.3 RBC 4.44 Hgb 12.6 Hct 37.1 MCV 83.7 MCH 28.3 MCHC 33.8 RDW 16.0 H Plt Count 240 Neut % (Auto) 81.8 H Lymph % (Auto) 12.9 L [place] % (Auto) 4.9 Eos % (Auto) 0.2 L Baso % (Auto) 0.2 Neut # (Auto) 8400 H Lymph # (Auto) 1300 [place] # (Auto) 500 Eos # (Auto) 0 Baso # (Auto) 0 Blood Type A Positive Antibody Screen Negative Assessment and Plan Assessment and Plan Assessment and Plan narrative: 23yo at 41w0d here for post-dates IOL. GBS negative, Rh positive. No complications with . Received 2 doses of cytotec overnight, minimal cervical change. Evans score 7. After informed consent, santa catheter placed and filled with 60cc NS. - Expectant management, anticipate - FHT reassuring - GBS negative, no prophylaxis - Epidural for pain control when desired - Santa in place with gentle traction. Will remove after 12hrs if has not fallen out prior to. Will start low dose pitocin if contractions taper away.
--- NOTE | 2024-01-09 10:41 | PM.AN.REGBLK ---
Regional Block Pre-procedure PMH/ROS narrative: active labor Labs: Hct 37.1 % (36-46) 01/08/24 20:15 Plt Count 240 X10^3/uL (150-400) 01/08/24 20:15 Medications: Current Medications Generic Name Dose Route Start Last Admin Trade Name Freq PRN Reason Stop Dose Admin Calcium Carbonate 1,000 mg 01/08/24 20:42 Calcium Carbonate 500 Mg Tab PO Q4HR PRN Dyspepsia Carboprost Tromethamine 250 mcg 01/08/24 20:42 Carboprost 250 Mcg/Ml Ampul IM Q90M PRN Bleeding Diphenhydramine HCl 25 mg 01/09/24 10:26 Diphenhydramine 50 Mg/Ml Vial IV Q10M PRN Pruritis Ephedrine Sulfate 10 mg 01/09/24 10:26 Ephedrine 50 Mg/Ml Vial IV Q5M PRN Blood pressure decrease more than 20% of baseline. Fentanyl 50 mcg 01/08/24 20:42 Fentanyl 100 Mcg/2 Ml Inj IV Q1H PRN Pain, Moderate (4-6) Oxytocin/Lactated Ringer's 30 unit in 500 mls @ 2 mls/hr 01/08/24 20:45 Oxytocin Premix IV TITRATE LATHA Protocol 2 MILLIUNIT/MIN Lactated Ringer's 1,000 mls @ 100 mls/hr 01/08/24 20:45 01/08/24 21:17 Lactated Ringers IV 100 mls/hr CONT LATHA Administration Oxytocin/Lactated Ringer's 30 unit in 500 mls @ 200 mls/hr 01/08/24 20:42 Oxytocin Premix IV CONT PRN Bleeding Protocol Tranexamic Acid 1,000 mg/ 100 mls @ 200 mls/hr 01/08/24 20:42 Sodium Chloride IV NOW PRN Bleeding Lactated Ringer's 1,000 mls @ 1,000 mls/hr 01/09/24 10:26 Lactated Ringers IV 01/09/24 11:25 BOLUS ONE FENT 2MCG/ML BUPIV 0.125% EPI 200 mcg in 100 mls @ 10 mls/hr 01/09/24 10:30 Fentanyl/Bupiv/Ns 2mcg/Ml - 0.125% EPIDURAL CONT LATHA Lidocaine HCl 20 ml 01/08/24 20:42 Lidocaine 1% 20 Ml INJ INTRA-OP PRN Post Delivery Methylergonovine Maleate 0.2 mg 01/08/24 20:42 Methylergonovine 0.2 Mg/Ml Vial IM NOW PRN Bleeding Methylergonovine Maleate 0.2 mg 01/08/24 20:42 Methylergonovine 0.2 Mg Tablet PO Q6HR PRN Heavy Bleeding Misoprostol 25 mcg 01/08/24 20:45 01/08/24 21:16 Misoprostol 25 Mcg Tablet PO 25 mcg Q4H LATHA Administration Misoprostol 400 mcg 01/08/24 20:42 Misoprostol 200 Mcg Tablet SL NOW PRN Bleeding Misoprostol 800 mcg 01/08/24 20:42 Misoprostol 200 Mcg Tablet ID NOW PRN Bleeding Nalbuphine HCl 2.5 mg 01/09/24 10:26 Nalbuphine 20 Mg/Ml Ampul IV Q10M PRN Pruritis Naloxone HCl 0.2 mg 01/08/24 20:42 Naloxone 0.4 Mg/Ml Vial IV Q2MIN PRN Opiate Reversal Ondansetron HCl 4 mg 01/08/24 20:42 Ondansetron 4 Mg/2 Ml Inj IV Q4HR PRN Nausea And Vomiting Oxytocin 10 unit 01/08/24 20:42 Oxytocin 10 Unit/Ml Vial IM NOW PRN Bleeding Sodium Chloride 10 ml 01/08/24 21:00 Sodium Chloride 0.9% Flush IV BID LATHA Sodium Chloride 10 ml 01/08/24 20:42 Sodium Chloride 0.9% Flush IV PRN PRN Flush Sodium Chloride 10 ml 01/09/24 21:00 Sodium Chloride 0.9% Flush IV BID LATHA Sodium Chloride 10 ml 01/09/24 10:26 Sodium Chloride 0.9% Flush IV PRN PRN Flush Allergies: Allergies Allergy/AdvReac Type Severity Reaction Status Date / Time No Known Drug Allergies Allergy Verified 01/04/24 10:13 Procedure Insertion date: 01/09/24 Insertion time: 09:16 Prep/Local: betadine x3 and 1% lidocaine Interspace: l3 l4 Patient position: sitting Needle: 17 gauge Tuohy Loss of resistance with: saline LO at (cm): 6 Catheter placed at SKIN (cm): 12 Catheter in SPACE (cm): 12 Sensory level: t10 Initial Medications TEST DOSE time: 09:18 BOLUS DOSE time: 09:21 BOLUS DOSE (mL): 5 BOLUS DOSE med: 0.125% bupivacaine with fentanyl 10 mcg/mL Infusion INFUSION: 0.125% bupivacaine and with fentanyl 2 mcg/mL Initial rate (mL/hr): 10 Post-procedure Anesthesia date START: 01/09/24 Anesthesia time START: 09:05
[2024-01-09] MEDS: LACTATED RINGERS 1,000 ML 100 ML IV ×2 (11:54→17:06)
[2024-01-09] MEDS: OXYTOCIN PREMIX 30 UNIT/500 ML PLAST..BAG IV (12:35)
--- NOTE | 2024-01-09 12:56 | PM.OBPNLAB ---
Date/Time Date Patient Seen: 01/09/24 Time Patient Seen: 12:00 Pain Control Pain control: epidural Pelvic Exam Dilation (cm): 5 Effacement (%): 80 station: -1 Amniotic membrane status: Ruptured Contractions Contractions on admission: none Monitor mode: External Contraction frequency (min): 5 Contraction duration (min): 1 Contraction pattern: Regular Contraction intensity: Moderate Status status: Category l Heart Rate Baseline: 130 Monitor Accelerations: Present Monitor Decelerations: Absent Monitor Variability: Moderate Assessment and Plan Comments: 23yo at 41w0d here for post-dates IOL. GBS negative, Rh positive. No complications with . Received 2 doses of cytotec overnight, minimal cervical change. Evans score 7. Tran was placed, and then fell out shortly after. Pt had SROM initially with clear fluid, now meconium-stained. Contractions spaced, no significanty cervical change in 2hrs. - FHT reassuring - Epidural in place for pain control, working well - Start pitocin, titrate as tolerated
[2024-01-09] MEDS: FENT 2MCG/ML BUPIV 0.125% EPI 200 MCG/100 ML PLAST..BAG 10 MCG EPIDURAL (16:26)
[2024-01-09] MEDS: LACTATED RINGERS 1,000 ML 1000 ML IV (16:26)
--- NOTE | 2024-01-09 20:07 | PM.OBPNLAB ---
Date/Time Date Patient Seen: 01/09/24 Time Patient Seen: 20:07 Pain Control Pain control: epidural Pelvic Exam Dilation (cm): 10 Effacement (%): 100 station: -1 Amniotic membrane status: Ruptured Contractions Monitor mode: External Pitocin rate (mU/min): 5 Contraction frequency (min): 4 Contraction pattern: Irregular Contraction intensity: Moderate Status status: Category l Heart Rate Baseline: 130 Monitor Accelerations: Present Monitor Decelerations: Absent Monitor Variability: Moderate Assessment and Plan Comments: 23yo at 41w0d here for post-dates IOL. GBS negative, Rh positive. No complications with . Received 2 doses of cytotec overnight, minimal cervical change. Evans score 7. Tran was placed, and then fell out shortly after. Pt had SROM initially with clear fluid, now meconium-stained. Contractions spaced, pitocin initiated. Pt has now progressed to complete, however on exam notably different feel to fetus compared to previous. Anus then found on exam, and bedside u/s confirmed breech positioning. Baby with change in position intrapartum. Pt does endorse feeling significant movements during labor process. Pitocin discontinued. Due to breech presentation and full dilation, will proceed with primary . Pt consented for surgery. Risks including but not limited to bleeding/hemorrhage, infection, injury to other organs such as bowel/bladder, injury to fetus were discussed. The pt agrees to blood transfusion if medically necessary. Consent was signed and placed in the chart. 2g Ancef and 500g Azithromycin to be given prior to surgery. SCDs to be placed.
--- NOTE | 2024-01-09 20:23 | SUR.OPER ---
Supine on Padded OR bed, head on pillow, safety belt at thigh, arms secured on padded arm boards at <90 degrees abduction. Bump under right buttock. Legs uncrossed with pillow under knees, gel pad to heels, tape over blanket to lower legs.
[2024-01-09] MEDS: AZITHROMYCIN 500 MG in DEXTROSE 5% IN WATER 250 ML 250 MG IV (21:00)
[2024-01-09] MEDS: CEFAZOLIN 2 GM/100 ML PREMIX 100 ML IV (21:04)
[2024-01-09] MEDS: ACETAMINOPHEN IV 1,000 MG/100 ML VIAL 400 MG IV (21:43)
--- NOTE | 2024-01-09 21:53 | PM.OBCS.1 ---
Operative Date/Time/Diagnoses Date of procedure: 01/09/24 Time of procedure: 21:00 Pre-op diagnosis: 41w0d gestation Rh positive GBS negative Breech presentation Post-op diagnosis: same Procedure & Clinicians Procedure: Primary Same procedure as scheduled: Yes Indications: Breech presentation Surgeon: Jyoti Kaba Environmental Health Manager: Rossana Lynn Anesthesia Type: Epidural Operative Notes Findings: Normal uterus, ovaries, and tubes Closure Type: primary Specimen(s): cord pH Intraoperative meds administered: Acetaminophen, Ketorolac and Pitocin Applied: Catheter Estimated Blood Loss (mL): 600 Blood products transfused: none Procedure in detail: OPERATIVE COURSE: The patient was taken to the operating room where epidural anesthesia was bolused. She was then prepared and draped in the normal sterile fashion in the dorsal supine position with a leftward tilt. Anesthesia was tested and found to be adequate. A Pfannensteil skin incision was then made with the scalpel and carried through to the underlying layer of fascia with the scalpel. The fascia was incised in the midline and the incision extended laterally with the Badillo scissors. The superior aspect of the fascial incision was then grasped with Mirtha clamps, elevated with the help of the surgical training specialist, and the underlying rectus muscles dissected off bluntly and sharply where needed. Attention was then turned to the inferior aspect of the incision which, in a similar fashion, was grasped, tented up with Mirtha clamps, and the rectus muscle dissected off bluntly and sharply with Badillo scissors. The rectus muscles were then in the midline, and the peritoneum was identified and entered bluntly. The peritoneal incision was then extended with good visualization of the bladder. Retraction was provided by the surgical training specialist. The bladder blade was then inserted and the vesicouterine peritoneum identified, grasped with pick-ups and entered sharply with the Metzenbaum scissors. The incision was then extended laterally and the bladder flap created digitally. The bladder blade was then reinserted and the lower uterine segment incised in a transverse fashion with the scalpel, with the surgical training specialist providing suction. The uterine incision was then extended superolaterally by pulling superolaterally on both sides. The bladder blade was removed the infant's buttock was delivered. The infants torso was delivered, and then anterior arm gently removed. The was then rotated 180 degrees, and the other arm delivered. The head was then delivered with gentle pressure from the medical assistant cardiology and rotating the baby superiorly onto maternal abdomen. The nose and mouth were suctioned with bulb suction and the cord was clamped and cut after 45 seconds. The infant was handed off to the waiting nursing staff. Cord blood was collected for Rh status. Cord gases were sent. The placenta was then delivered with gentle cord traction. The uterus was then exteriorized and cleared of all clots and debris. Extensions in the uterine incision were noted bilaterally to the level of the cervix. The uterine incision was repaired with O-Vicryl in a running, locked fashion. A second layer of the same suture was used for imbrication. A single [id number] with O-Vicryl was placed on the left side of the incision for excellent hemostasis. The bladder was located well below the repair, and ureters not near the field. The uterus was returned to the abdomen. The gutters were cleared of all clots. Hysterotomy was investigated and found to be hemostatic. Surgicel was placed over the incision. The fascia was reapproximated with O-Vicryl in a running fashion. The subcutaneous tissue was reapproximated with 3-O Vicryl. The skin was closed with 4-O Vicryl. The surgical training specialist helped with retraction during closures. SPONGE AND NEEDLE COUNTS: Correct x3. DRESSING: Aquacel ANTICOAGULATION: SCDs applied prior to Surgery Preop antibiotics given (see MAR). The patient was taken to recovery room having tolerated procedure well. Complications: none [place] Baby 1: Gender: Female Presentation: breech Placental Delivery Description: Spontaneous Cord Vessel Description: 3 Vessels score (1 min): 4 score (5 min): 8 score (10 min): 8 weight: 9 lb 7.219 oz Narrative: Baby required brief PPV after delivery. Arterial blood gas pH 7.22, base excess -3 Post-operative Condition: stable Disposition: PACU Aftercare: routine postop
[2024-01-09 21:55] VITALS: BP 110/71; PULSE 79; RESP 14; TEMP 36.8; O2SAT 100
[2024-01-09 22:00] VITALS: BP 118/72; PULSE 68; RESP 18; O2SAT 100
[2024-01-09] MEDS: fentaNYL 100 MCG/2 ML INJ 50 MCG IV (22:02)
[2024-01-09 22:05] VITALS: BP 118/87; PULSE 71; RESP 17; O2SAT 100
[2024-01-09 22:10] VITALS: BP 126/78; PULSE 83; RESP 18; O2SAT 100
[2024-01-09] MEDS: fentaNYL 100 MCG/2 ML INJ IV (22:12)
[2024-01-09 22:15] VITALS: BP 110/74; PULSE 79; RESP 18; O2SAT 99
[2024-01-09 22:20] VITALS: BP 111/72; PULSE 78; RESP 22; O2SAT 98
--- NOTE | 2024-01-09 22:38 | SUR.PHASEI ---
Pt transferred to room 3 with Hira BAPTISTE , baby on mom's chest and dad at bedside.
[2024-01-09] MEDS: OXYCODONE IR 5 MG TABLET 10 MG PO (22:55)
[2024-01-09] MEDS: MORPHINE 4 MG/ML INJ 5 MG IV (23:04)
[2024-01-10] MEDS: KETOROLAC 30 MG/ML VIAL IV (03:38)
[2024-01-10] MEDS: ACETAMINOPHEN 325 MG TABLET 650 MG PO ×3 (03:39→15:01)
[2024-01-10] MEDS: MORPHINE 2 MG/ML INJ IV (04:30)
[2024-01-10 05:51] LABS: Add Manual Diff / Slide Review NO; Basophils Absolute Auto 100 /uL (0-100); Basophils Percent Auto 0.4 % (0-2); Eosinophils Absolute Auto 0 /uL (0-450); Eosinophils Percent Auto 0.3 % (2-4); Hematocrit 32.3 % (36-46); Lymphocytes Absolute Auto 1000 /uL (1100-4500); Lymphocytes Percent Auto 7.1 % (25-40); Mean Corpuscular Volume 82.4 fL (80-100); Monocytes Absolute Auto 500 /uL (0-900); Monocytes Percent Auto 3.9 % (3-14); Neutrophils Absolute Auto 12300 /uL (1500-7000); Neutrophils Percent Auto 88.3 % (50-75); Platelet Count 203 X10^3/uL (150-400); Red Blood Cell Count 3.92 X10^6/uL (4.0-5.2); Red Cell Distribution Width 16.2 % (11.6-14.8); White Blood Cell Count 13.9 X10^3/uL (4.5-11.0)
[2024-01-10] MEDS: OXYCODONE IR 5 MG TABLET 10 MG PO ×2 (07:42→15:01)
[2024-01-10] MEDS: DOCUSATE 100 MG CAPSULE PO (09:14)
[2024-01-10] MEDS: PRENATAL VIT,CALC/IRON/FOLIC 1 TABLET 1 TAB PO (09:14)
[2024-01-10] MEDS: IBUPROFEN 600 MG TABLET PO ×2 (10:41→18:29)
--- NOTE | 2024-01-10 20:43 | P.PNOB_ITS ---
Subjective - OB Subjective Date Patient Seen: 01/10/24 Interval history: The pt is overall doing well. Her lochia is decreasing appropriately. She is , working on latch. She has been able to urinate and ambulate minimally. She has not yet passed flatus. She struggled with pain control last night/this morning, now improving. Exam Vital Signs (past 8 hours): Oxygen Delivery Method Room Air Resp Auscultation: clear to auscultation bilaterally Cardio Rate: regular rate Rhythm: regular rhythm Heart Sounds: S1 normal, S2 normal and no murmurs GI Inspection: non-distended and incision (dressing c/d/i) Palpation: soft, No guarding and tender (appropriately tender) Auscultation: normal bowel sounds Other: fundus firm and below the umbilicus Extrem Right upper extremity: no edema Objective Labs 01/10/24 05:43 Labs: Laboratory Results - last 24 hr 01/10/24 05:43 WBC 13.9 H RBC 3.92 L Hgb 11.0 L Hct 32.3 L MCV 82.4 MCH 28.0 MCHC 34.0 RDW 16.2 H Plt Count 203 Neut % (Auto) 88.3 H Lymph % (Auto) 7.1 L [place] % (Auto) 3.9 Eos % (Auto) 0.3 L Baso % (Auto) 0.4 Neut # (Auto) 86724 H Lymph # (Auto) 1000 L [place] # (Auto) 500 Eos # (Auto) 0 Baso # (Auto) 100 Assessment & Plan Plan Comments: 23yo [id number] POD #1 s/p primary for breech presentation. Pt doing well overall. - Encourage ambulation today - Continue Tylenol, Ibuprofen, Oxycodone for pain control - support Time Spent With Patient Time: Total time spent is greater than 50% in coordination of care (as documented) at patient's floor/unit and/or counseling patient: Time with patient: less than 15 minutes
[2024-01-10] MEDS: OXYCODONE IR 10 MG TABLET PO (20:58)
[2024-01-11] MEDS: ACETAMINOPHEN 325 MG TABLET 650 MG PO ×2 (00:05→06:00)
[2024-01-11] MEDS: IBUPROFEN 600 MG TABLET PO ×2 (00:05→05:59)
[2024-01-11 02:06] VITALS: BP 111/72; PULSE 78; RESP 22; TEMP 36.6
--- NOTE | 2024-01-11 08:59 | P.DS_ITS ---
Discharge Providers Provider Date of admission: 01/08/24 19:23 Discharge Date: 01/11/24 Primary care physician: Jyoti Kaba MD Consults: 01/09/24 22:49 Consult to Journeyman Pipe Fitter Routine Comment: Discharge provider: yJoti Kaba MD Summary Hospital Course Date Patient Seen: 01/11/24 Diagnoses: 41w0d gestation GBS negative Rh positive Breech presentation Primary Hospital Course: The pt presented for post-dates IOL. She was given cytotec with minimal cervical change. A santa catheter was placed, which fell out shortly after. The pt then progressed and had an epidural for pain control. She had SROM with clear fluid, that transitioned to meconium-stained. The pt notably had a very apparently palpable skull for presenting part, with hair palpable as well. Pitocin was initiated due to spacing of contractions. The pt ultimately progressed to complete dilation, however then was noted to have a breech presentation with anus felt on cervical exam. The pt then underwent primary c- section without complications. She delivered a viable baby girl. , there were no complications. At the time of discharge she was voiding, ambulating, and passing flatus without difficulty. Her lochia was decreasing appropriately. Her pain was well controlled. She was with good latch. She will f/u in 1 week for incision check. Peripartum Data Delivery Method: Section Procedures: Primary complications: none [place] 1: Gender: Female Disposition of : home Discharge Diagnosis (1) S/P : Status: Acute Status at Discharge Cognitive/behavioral status at discharge: oriented Functional status at discharge: independent ambulation Overall status at discharge: patient is progressing back to baseline Time Spent with Patient Time attestation: Total time spent providing and/or coordinating discharge services: Objective Labs 01/10/24 05:43 Exam Vital Signs (past 8 hours): Oxygen Delivery Method Room Air Resp Auscultation: clear to auscultation bilaterally Cardio Rate: regular rate Rhythm: regular rhythm Heart Sounds: S1 normal, S2 normal and no murmurs GI Inspection: non-distended and incision (dressing c/d/i) Palpation: soft, No guarding and tender (appropriately tender) Auscultation: normal bowel sounds Other: fundus firm and below the umbilicus Extrem Right upper extremity: no edema Discharge Plan Discharge Plan Patient Disposition: Home Discharge orders & Medications Prescriptions: New acetaminophen 325 mg Tablet 650 mg PO Q6H Qty: 60 0RF docusate sodium 100 mg Capsule 100 mg PO DAILY Qty: 30 0RF ibuprofen 600 mg Tablet 600 mg PO Q6H Qty: 60 0RF oxycodone 5 mg tablet See Rx Instructions .ROUTE .COMPLEX PRN (Reason: pain) Qty: 60 0RF Rx Instructions: Take 1-2 tabs every 4hrs as needed for pain Continued vit-ferrous sulfat-FA 27 mg iron- 0.8 mg tablet PO Discontinued amoxicillin 250 mg capsule 250 mg PO TID Patient Comments: last dose will be 05/15/23 omeprazole 20 mg capsule,delayed release(DR/EC) 20 mg PO DAILY Qty: 30 0RF Follow up/Referrals: Jyoti Kaba MD [Primary Care Provider] - 01/15/24 2:45 pm Diet/Activity/Treatments Diet: Diet as Tolerated Skin/Wound/Dressing Care Report to your healthcare provider any signs of infection, such as:: chills, fever, increased pain and unusual drainage Visit Report/Discharge Packet Instructions: DI for Stand Alone Forms: Discharge: Care, Patient Portal/API, Stroke Signs & Symptoms Discharge Data Primary Care Provider: Jyoti Kaba
[2024-01-11] MEDS: PRENATAL VIT,CALC/IRON/FOLIC 1 TABLET 1 TAB PO (09:24)
[2024-01-11] MEDS: DOCUSATE 100 MG CAPSULE PO (09:24)
[2024-01-11 09:25] VITALS: TEMP 36.6
[2024-01-11] MEDS: OXYCODONE IR 10 MG TABLET PO (09:25)
[2024-01-11 09:38] VITALS: BP 111/67; PULSE 76; RESP 18; TEMP 36.6
== END 2024-01-11 14:30 | disposition home or self-care (01) | DRG 788 ==
PROVIDERS: Admitting Provider Family Medicine; PCP Family Medicine; Referring Provider Family Medicine; Visit Provider Family Medicine
PROC: 10D00Z1 Extraction of Products of Conception, Low, Open Approach (ICD-10-PCS; CPT 59514; principal; 2024-01-09 21:30)
DX: O32.1XX0 Maternal care for breech presentation, not applicable or unspecified (principal); O48.0 Post-term pregnancy; Z3A.41 41 weeks gestation of pregnancy; Z37.0 Single live birth
CPT/HCPCS: 36415; 59050; 59200; 59510; 59514; 76815; 85025; 86850; 86900; 86901; G0379; J0136; J0690; J1885; J2270; J2590; J3010

== ENCOUNTER 2024-02-13 15:02 | Observation (INO) | payer OTHER, SELFPAY ==
[2024-02-13 15:20] VITALS: BP 121/71; PULSE 69; RESP 18; TEMP 36.4; O2SAT 99
[2024-02-13] MEDS: LACTATED RINGERS 1,000 ML 100 ML IV (15:30)
[2024-02-13] MEDS: METHYLERGONOVINE 0.2 MG/ML VIAL IM (15:38)
[2024-02-13] MEDS: TRANEXAMIC ACID 1,000 MG in SODIUM CHLORIDE 0.9% 100 ML 600 MG IV (15:43)
[2024-02-13 15:44] LABS: Add Manual Diff / Slide Review NO; Basophils Absolute Auto 0 /uL (0-100); Basophils Percent Auto 0.3 % (0-2); Eosinophils Absolute Auto 100 /uL (0-450); Eosinophils Percent Auto 0.8 % (2-4); Hematocrit 39.3 % (36-46); Lymphocytes Absolute Auto 2000 /uL (1100-4500); Lymphocytes Percent Auto 29.5 % (25-40); Mean Corpuscular HGB Conc 33.1 % (30-36); Mean Corpuscular Hemoglobin 27.8 PG (26-34); Mean Corpuscular Volume 83.8 fL (80-100); Monocytes Absolute Auto 300 /uL (0-900); Monocytes Percent Auto 5.2 % (3-14); Neutrophils Absolute Auto 4300 /uL (1500-7000); Neutrophils Percent Auto 64.2 % (50-75); Platelet Count 252 X10^3/uL (150-400); Red Blood Cell Count 4.69 X10^6/uL (4.0-5.2); Red Cell Distribution Width 15.2 % (11.6-14.8); White Blood Cell Count 6.7 X10^3/uL (4.5-11.0)
[2024-02-13 15:56] LABS: Alanine Aminotransferase 36 IU/L (<35); Albumin 4.6 g/dL (3.5-5.0); Albumin Globulin Ratio 1.5 (1.0-2.8); Alkaline Phosphatase 106 U/L (38-126); Aspartate Aminotransferase 35 IU/L (14-36); BUN Creatinine Ratio 15.6 (6-22); Bilirubin Total 0.6 mg/dL (0.2-1.3); Blood Urea Nitrogen 10 mg/dL (7-17); Calcium 8.8 mg/dL (8.4-10.2); Carbon Dioxide 24 mmol/L (22-32); Chloride 108 mmol/L (98-107); Estimated Glomerular Filt Rate > 60 mL/min (>60); Glucose 84 mg/dL (70-100); HEMOLYSIS < 15 (0-50); Sodium 139 mmol/L (137-145); Total Protein 7.6 g/dL (6.3-8.2)
[2024-02-13] MEDS: OXYTOCIN PREMIX 30 UNIT/500 ML PLAST..BAG 200 UNIT IV (16:15)
[2024-02-13 16:54] LABS: Prothrombin Time 11.7 SECONDS (9.4-12.5)
[2024-02-13 17:02] LABS: PTT Partial Thromboplastin Tim 28 SECONDS (25.1-36.5)
--- NOTE | 2024-02-13 17:03 | PM.HP.1 ---
History of Present Illness History of Present Illness Date Patient Seen: 02/13/24 Chief complaint: Observation/New Meds Narrative: Pt is a 23yo , 5wks after primary for breech presentation, who presented with heavy vaginal bleeding. The pt reports that around 4 weeks her bleeding had tapered away. On 02/07, she began bleeding again, and it gradually increased in volume. Today she has been soaking through a heavy pad every 1-2 hrs, and passing large clots frequently. She states that when she stands she can feel it gushing out. She denies any fevers or chills. She denies any palpitations or lightheadedness. She continues to breastfeed without difficulty. She has otherwise been feeling well. [facility] Medical History (Updated 05/11/23 @ 14:43 by Mimi Holder RN) Adopted Depression Anxiety Surgical History (Updated 01/11/24 @ 13:35 by Jyoti Kaba MD) S/P H/O tooth extraction [place] teeth extracted Family History (Updated 05/11/23 @ 14:42 by Mimi Holder RN) Mother Substance abuse Social History marital status: number of children: 0 household members: spouse lives independently: Yes caregiver/support person: No [facility] pets and animals: Yes (2 cats, 1 dog) education level: vocational occupational status: employed current occupational exposures/hazards: No special shaun needs: No travel history: over 6 months ago seatbelt use: always helmet use: Yes water heater temp set < 120 deg: Yes working smoke detector in home: Yes fire extinguisher in home: Yes carbon monox detector in home: Yes firearms in home: No do you feel safe at home: Yes Smoking Status: Never smoker second hand exposure: Yes ( is trying to quit vaping) alcohol intake: former substance use type: does not use during the past year weight has: decreased > 10 lbs well-balanced diet: about half the time daily servings fruits/ve-4 caffeine: No Type(s) of exercise: walking, aerobic and weight lifting frequency: 3-4 times per week Meds Home Medications and Allergies Home Medications Medication Instructions Recorded Confirmed Type vitamin-ferrous sulfate tab PO 05/11/23 02/13/24 History 27 mg iron-folic acid 0.8 mg tablet acetaminophen 325 mg tablet 650 mg (2 x 325 mg) PO Q6H #60 tabs 01/11/24 02/13/24 Rx docusate sodium 100 mg capsule 100 mg PO DAILY #30 caps 01/11/24 02/13/24 Rx ibuprofen 600 mg tablet 600 mg PO Q6H #60 tabs 01/11/24 02/13/24 Rx oxycodone 5 mg tablet See Rx Instructions .Route 01/11/24 02/13/24 Rx .COMPLEX PRN pain #60 tabs Allergies Allergy/AdvReac Type Severity Reaction Status Date / Time No Known Drug Allergies Allergy Verified 02/13/24 13:56 Exam Vital Signs (past 8 hours): - 02/13/24 15:20 Temperature 97.5 F L Pulse Rate 69 Respiratory Rate 18 Blood Pressure 121/71 Pulse Oximetry 99 Oxygen Flow Rate 0 Oxygen Flow Rate 0 Narrative Exam Narrative: Gen: NAD, sitting comfortably in bed, appears well CV: RRR, no murmurs Resp: clear to auscultation bilaterally Abd: soft, mild tenderness, uterus barely palpable above pubic symphysis Ext: trace edema Objective Labs 02/13/24 15:25 02/13/24 15:25 Labs: Laboratory Results - last 24 hr 02/13/24 02/13/24 15:25 16:35 WBC 6.7 RBC 4.69 Hgb 13.0 Hct 39.3 MCV 83.8 MCH 27.8 MCHC 33.1 RDW 15.2 H Plt Count 252 Neut % (Auto) 64.2 Lymph % (Auto) 29.5 [place] % (Auto) 5.2 Eos % (Auto) 0.8 L Baso % (Auto) 0.3 Neut # (Auto) 4300 Lymph # (Auto) 2000 [place] # (Auto) 300 Eos # (Auto) 100 Baso # (Auto) 0 PT 11.7 INR 1.0 APTT 28 Sodium 139 Potassium 4.0 Chloride 108 H Carbon Dioxide 24 BUN 10 Creatinine 0.64 Estimated GFR > 60 BUN/Creatinine Ratio 15.6 Glucose 84 Calcium 8.8 Total Bilirubin 0.6 AST 35 ALT 36 H Alkaline Phosphatase 106 Total Protein 7.6 Albumin 4.6 Globulin 3.0 Albumin/Globulin Ratio 1.5 Blood Type A Positive Antibody Screen Negative Assessment & Plan Assessment & Plan narrative: 23yo , 5 weeks after primary for breech presentation, here due to heavy vaginal bleeding. No retained products/large clots present on u/s. Uterus has fully involuted. H/H is stable, pt asymptomatic with stable vitals. After discussion with [facility], recommended medical management. Pt receive 30mU pitocin, TXA, and methergine. Her bleeding slowed significantly, and was scant at the time of discharge. She will discharge home on oral TXA in addition to high dose OCPs. She has f/u in clinic in 2 days. Quality VTE Deep Vein Thrombosis/Pulmonary Embolism Present on Admission: No PROFEE Charge Codes Inpatient/observation care including admit and discharge same day: 72726
[2024-02-13 17:10] VITALS: BP 124/62; PULSE 69; RESP 16; TEMP 35.8; O2SAT 97
[2024-02-13 18:09] VITALS: BP 124/62; PULSE 69; RESP 16; TEMP 35.8
== END 2024-02-13 18:54 | disposition home or self-care (01) ==
PROVIDERS: Admitting Provider Family Medicine; PCP Family Medicine; Referring Provider Family Medicine; Visit Provider Family Medicine
DX: O72.1 Other immediate postpartum hemorrhage (principal)
CPT/HCPCS: 36415; 36592; 76856; 80053; 85025; 85610; 85730; 86850; 86900; 86901; 96360; 96372; G0378; G0379; J2210; J2590